=== PATIENT | male | born 1955 | race Caucasian/White ===

== ENCOUNTER 2023-10-07 14:22 | Emergency (ER) | payer MEDICARE ==
[~2023-10-07] VITALS: Ht 167.6 cm; Wt 79.4 kg
[2023-10-07 14:30] VITALS: BP 180/87; PULSE 60; RESP 20; TEMP 97; O2SAT 98
[2023-10-07] MEDS: ENALAPRILAT 2.5 MG/2 ML VIAL IVP ONE (17:01)
[2023-10-07] MEDS: NACL 0.9% 1,000 ML IV ONE (17:03)
[2023-10-07 17:56] LABS: BASOPHILS % (AUTO) 0.2 % (0.0-2.0); EOSINOPHILS % (AUTO) 0.1 % (0.0-4.0); HEMATOCRIT 45.1 % (36-52); HEMOGLOBIN 15.5 g/dL (12.0-18.0); LYMPHOCYTES # (AUTO) 0.9 K/uL (2.0-11.5); LYMPHOCYTES % (AUTO) 7.4 % (20.5-51.1); MEAN CORPUSCULAR HEMOGLOBIN 29 pg (27-31); MEAN CORPUSCULAR HGB CONC 34 g/dL (33-37); MONOCYTES # (AUTO) 0.5 K/uL (0.8-1.0); MONOCYTES % (AUTO) 4.3 % (1.7-9.3); NEUTROPHILS # (AUTO) 10.3 K/uL (1.8-7.7); PLATELET COUNT (AUTO) 144 K/uL (140-450); RED CELL DISTRIBUTION WIDTH 14.6 % (11.6-13.7); WHITE BLOOD COUNT (AUTO) 11.8 K/uL (4.8-10.8)
[2023-10-07 18:07] LABS: ANION GAP 12.2 (8-16); CALCIUM 8.9 mg/dL (8.5-10.1); CARBON DIOXIDE 27.4 mmol/L (21-32); CREATININE 1.2 mg/dL (0.6-1.3); POTASSIUM 3.6 mmol/L (3.5-5.1)
[2023-10-07] MEDS ORDERED: cefTRIAXone 1,000 MG VIAL ONE (18:08)
[2023-10-07] MEDS ORDERED: KETOROLAC 30 MG/ML VIAL ONE (18:09)
[2023-10-07] MEDS: cefTRIAXone 1,000 MG in DEXT 5% MINI-BAG PLUS 50 ML IV ONE (18:40)
[2023-10-07 18:45] LABS: LACTIC ACID 2.8 mmol/L (0.4-2.0)
[2023-10-07] MEDS: KETOROLAC 30 MG/ML VIAL IVP ONE (18:52)
[2023-10-07 20:03] VITALS: BP 134/77; PULSE 87; RESP 20; TEMP 96; O2SAT 98
== END 2023-10-07 20:05 | disposition short-term general hospital (02) ==
LOC: MED 14:22
DX: I63.9 Cerebral infarction, unspecified (principal); R53.1 Weakness; Z79.899 Other long term (current) drug therapy
CPT/HCPCS: 36415; 70450; 71045; 80048; 82948; 83605; 83880; 84484; 85025; 87040; 93005; 96361; 96365; 96375; 99285; J0696; J1885; J3490; J7030